=== PATIENT | male | born 1960 | race Caucasian/White ===

== ENCOUNTER 2016-10-08 07:30 | Emergency (ER) | payer BC ==
[2016-10-08 07:35] VITALS: BMI 30.2
[2016-10-08] MEDS ORDERED: ZOFRAN INJ 4 MG VIAL IVP ONE (08:07)
[2016-10-08] MEDS ORDERED: NS 1000 ML 1,000 ML IV ONE (08:07)
[2016-10-08] MEDS ORDERED: NS 1000 ML 1,000 ML ONE ×2 (08:09→12:59)
[2016-10-08] MEDS ORDERED: ZOFRAN INJ 4 MG VIAL ONE (08:09)
[2016-10-08] MEDS ORDERED: THORAZINE INJ 25 MG AMP IM ONE (08:30)
[2016-10-08] MEDS ORDERED: PEPCID 20 MG IV PREMIX* 20 MG/50 ML BAG IV ONE ×2 (08:30→08:36)
[2016-10-08] MEDS ORDERED: THORAZINE INJ 25 MG AMP ONE (08:37)
--- NOTE | 2016-10-08 08:38 | DR.GENAD ---
HPI - PCP Primary Care Physician: blair - HPI Comment HPI Comment: PATIENTS SYMTOMS WORSE TODAY. NO FEVER.DIARRHEA IS LESS FREQUENT TODAY. SEEN LAST NIGHT AT [facility]. FLU TEST NEGATIVE. GIVEN PROTONIX. NOT IMPROVE. - Complaint/Symptoms Chief Complaint Doctors Comments: ABDOMINAL PAIN, N/V/D TIMES 3 DAYS WITH HICCUP. Chief Complaint:: patient stated his abd felt funny friday and then nausea and vomiting with diarrhea and hicupps. - Nurses notes reviewed Nurses Notes Review: Yes - Source History Provided: Patient - Mode of Arrival Mode of Arrival: Ambulatory - Timing Onset of Chief Complaint: 10/05/16 Came on: Suddenly - Duration Duration: Constant Duration: Days - Severity Severity: Moderate PMH - PMH Past Medical History: Yes Past Medical History: Hypertension Past Surgical History: Yes Past Surgical History Comment: hernia - Family History History of Family Medical Conditions: No - Social History Does patient currently use any type of tobacco product: No Have you used tobacco products in the last 12 months: No Type of Tobacco Use: None Does any household member use tobacco: No Alcohol Use: None Do you use any recreational Drugs:: No Lives With: Family Lives Where: Home - infectious screening In the last 2 months have you had wt loss of >10#?: NO Have you had fever, night sweats or hemotysis?: No Have you traveled outside the country in the last 6 months?: No Isolation: Standard ROS - Review of Systems Constitutional: Weakness. negative: Chills, Fever Eyes: No Symptoms Reported. negative: Eye Pain, Discharge ENTM: No Symptoms Reported. negative: Ear Pain, Nose Discharge, Nose Congestion , Throat Pain Respiratoy: No Symptoms Reported. negative: Productive Cough, Short of Breath, Wheezing, Hemoptysis Gastrointestinal/Abdominal: Abdominal Pain, Diarrhea, Nausea, Vomiting Genitourinary: No Symptoms Reported. negative: Dysuria, Frequency, Hematuria Neurological: No Symptoms Reported. negative: Headache, Weakness, Dizziness Musculoskeletal: Muscle Pain Integumentary: Dryness Endocrine: No Symptoms Reported All Other Systems: Reviewed and Negative PE - Vital Signs Vitals: Temperature 97.3 F Pulse Rate [Right Brachial] 111 Pulse Rate 113 Respiratory Rate 17 Blood Pressure [Right Arm] 129/75 Blood Pressure 123/81 O2 Sat by Pulse Oximetry 95 - General Limitations: No Limitations General Appearance: Alert - Head Head Exam: Normal Inspection - Eyes Eye exam: Normal Appearance - ENT ENT Exam: Normal External Ear Exam External Ear Exam: Normal External Inspection TM/Canal Exam: Bilateral Normal Nose Exam: Normal Nose Exam Mouth Exam: Normal Inspection Throat Exam: Normal Inspection - Neck Neck Exam: Trachea Midline. negative: Tenderness, Meningismus, Lymphadenopathy - Chest Chest Inspection: Symmetric Chest Wall Rise - Respiratory Respiratory Exam: Normal Lung Sounds Bilat Respiratory Exam: Bilateral Clear to Auscultation - Cardiovascular Cardiovascular Exam: Regular Rate, Normal Rhythm, Normal Heart Sounds - Abdominal Exam Abdominal Exam: Normal Bowel Sounds, Soft, Tenderness Abdominal Tenderness: Diffuse, Moderate - Extremities Extremities Exam: Normal Inspection - Back Back Exam: Normal Inspection - Neurologic Neurological Exam: Alert, Oriented X3 - Psychiatric Psychiatric Exam: Normal Affect, Normal Mood - Skin Skin Exam: Dry MDM - Additional Information Additional Information Obtained From: Family - Differential Diagnosis Differential Diagnosis: ABDOMINAL PAIN, GASTROENTERITIS, BOWEL OBSTRUCTION, HICCUPS, Course - Treatment Treatment: SEE ORDERS - Reevaluation 1st: Improved (IV FLUIDS, MED FOR NAUSEA AND PAIN) 2nd: Improved (NG TUBE LOW SUCTION. SEE NURSING NOTE.) - Consultation Consultation Comments: DISCUSS PATIENT WITH DR. HWANG. HE WANT PATIENT TRANSFER TO [facility] THERE IS NO SURGEON AT OUR FACILITY. DR. IRIZARRY IN [facility] ACCEPTED PATIENT FOR ED TRANSFER. DR. WITT IN ED ALSO ACCEPTED PATIENT FOR ED TRANSFER. - Education/Counseling Education/Counseling: Patient, Family, Education Educated On: Treatment, Diagnosis ROR - Labs Reviewed Laboratory Results Reviewed?: Yes Result Diagrams: 10/08/16 08:00 10/08/16 08:00 Laboratory: WBC 9.8 X10^3/uL (3.6-10.0) 10/08/16 08:00 RBC 6.13 X10^6/uL (4.7-6.0) H 10/08/16 08:00 Hgb 17.5 g/dL (13.5-18.0) 10/08/16 08:00 Hct 52.1 % (42.0-54.0) 10/08/16 08:00 MCV 84.9 fL (80.0-100.0) 10/08/16 08:00 MCH 28.5 pg (27.0-34.0) 10/08/16 08:00 MCHC 33.5 g/dL (33.0-35.0) 10/08/16 08:00 RDW 15.0 % (11.6-16.5) 10/08/16 08:00 Plt Count 212 X10^3/uL (150.0-450.0) 10/08/16 08:00 MPV 8.7 fL (7.4-11.0) 10/08/16 08:00 Neut % 71.0 % (42.0-75.0) 10/08/16 08:00 Lymph % 9.4 % (21.0-51.0) L 10/08/16 08:00 Reeves % 19.3 % (0.0-13.0) H 10/08/16 08:00 Eos % 0.1 % (0.9-2.9) L 10/08/16 08:00 Baso % 0.2 % (0.2-1.0) 10/08/16 08:00 Neut # 6.9 x10^3/uL (2.2-4.8) H 10/08/16 08:00 Lymph # 0.9 X10^3/uL (1.3-2.9) L 10/08/16 08:00 Reeves # 1.9 x10^3/uL (0.3-0.8) H 10/08/16 08:00 Eos # 0.0 x10^3/uL (0.0-0.2) 10/08/16 08:00 Baso # 0.0 X10^3/uL (0.0-0.1) 10/08/16 08:00 Absolute Nucleated RBC 0.0 /100WBC 10/08/16 08:00 Sodium 142 mmol/L (136-145) 10/08/16 08:00 Corrected Sodium 143 mmol/L (136-145) 10/08/16 08:00 Potassium 3.9 mmol/L (3.5-5.1) 10/08/16 08:00 Chloride 105 mmol/L (98-107) 10/08/16 08:00 Carbon Dioxide 26.2 mmol/L (21-32) 10/08/16 08:00 BUN 28 mg/dL (7-18) H 10/08/16 08:00 Creatinine 1.82 mg/dL (0.70-1.30) H 10/08/16 08:00 Est GFR (MDRD) Af Amer 49 (>60) L 10/08/16 08:00 Est GFR (MDRD) Non-Af 41 (>60) L 10/08/16 08:00 Glucose 121 mg/dL (65-99) H 10/08/16 08:00 Calcium 8.1 mg/dL (8.5-10.1) L 10/08/16 08:00 Corrected Calcium TNP 10/08/16 08:00 Total Bilirubin 0.30 mg/dL (0.2-1.0) 10/08/16 08:00 AST 23 Units/L (15-37) 10/08/16 08:00 ALT 27 Units/L (12-78) 10/08/16 08:00 Alkaline Phosphatase 31 Units/L (46-116) L 10/08/16 08:00 Total Protein 7.0 g/dL (6.4-8.2) 10/08/16 08:00 Albumin 3.5 g/dL (3.4-5.0) 10/08/16 08:00 Globulin 3.5 g/dL (2.5-4.5) 10/08/16 08:00 Albumin/Globulin Ratio 1.0 Ratio (1.1-2.1) L 10/08/16 08:00 Amylase 36 Units/L (25-115) 10/08/16 08:00 Lipase 117 Units/L (73-393) 10/08/16 08:00 H. pylori IgG Antibody Negative (NEGATIVE) 10/08/16 08:00 - XRAY XRAY Interpreted by: Radiologist XRAY Findings: REPORT DISCUSS WITH PATIENT AND HIS . - Diagnosis Discharge Problem: Small bowel obstruction Abdominal pain Qualifiers: Abdominal location: generalized Qualified Code(s): R10.84 - Generalized abdominal pain - Discharge Plan Disposition: XFER [facility]OS[facility] Condition: Stable - Follow ups/Referrals Follow ups/Referrals: Kin Hwang [Primary Care Provider] - 3 days - Instructions
[2016-10-08 08:42] LABS: ALANINE AMINOTRANSFERASE 27 Units/L (12-78); ALBUMIN 3.5 g/dL (3.4-5.0); ALKALINE PHOSPHATASE 31 Units/L (46-116); AMYLASE 36 Units/L (25-115); ASPARTATE AMINO TRANSFERASE 23 Units/L (15-37); BLOOD UREA NITROGEN 28 mg/dL (7-18); CALCIUM 8.1 mg/dL (8.5-10.1); CARBON DIOXIDE 26.2 mmol/L (21-32); CHLORIDE 105 mmol/L (98-107); COR NA(FOR HYPERGLY) 143 mmol/L (136-145); CREATININE 1.82 mg/dL (0.70-1.30); GLUCOSE 121 mg/dL (65-99); LIPASE 117 Units/L (73-393); SODIUM 142 mmol/L (136-145); eGFR BLACK RACES 49 (>60); eGFR NON BLACK RACES 41 (>60)
[2016-10-08 08:49] LABS: BASOPHILS % (AUTO) 0.2 % (0.2-1.0); EOSINOPHILS % (AUTO) 0.1 % (0.9-2.9); HEMATOCRIT 52.1 % (42.0-54.0); HEMOGLOBIN 17.5 g/dL (13.5-18.0); LYMPHOCYTES # (AUTO) 0.9 X10^3/uL (1.3-2.9); LYMPHOCYTES % (AUTO) 9.4 % (21.0-51.0); MEAN CORPUSCULAR HEMOGLOBIN 28.5 pg (27.0-34.0); MEAN CORPUSCULAR HGB CONC 33.5 g/dL (33.0-35.0); MEAN CORPUSCULAR VOLUME 84.9 fL (80.0-100.0); MEAN PLATELET VOLUME 8.7 fL (7.4-11.0); MONOCYTES # (AUTO) 1.9 x10^3/uL (0.3-0.8); MONOCYTES % (AUTO) 19.3 % (0.0-13.0); NEUTROPHILS # (AUTO) 6.9 x10^3/uL (2.2-4.8); PLATELET COUNT 212 X10^3/uL (150.0-450.0); RED BLOOD COUNT 6.13 X10^6/uL (4.7-6.0); WHITE BLOOD COUNT 9.8 X10^3/uL (3.6-10.0)
[2016-10-08] MEDS ORDERED: PHENERGAN INJ 25 MG IV ONE (09:05)
[2016-10-08] MEDS ORDERED: DEMEROL INJ IVP ONE (09:05)
[2016-10-08] MEDS ORDERED: PHENERGAN INJ 25 MG ONE (09:07)
[2016-10-08] MEDS ORDERED: DEMEROL INJ ONE (09:07)
[2016-10-08] MEDS ORDERED: NS 1000 ML 1,000 ML IV SCH (10:00)
--- NOTE | 2016-10-08 10:39 | RAD ---
HISTORY: Abdominal pain Study: Acute abdominal series Comparison: None Findings: The lungs are clear without consolidation, effusion or pneumothorax. The cardiac and mediastinal co ntours are within normal limits. There are dilated small bowel loops measuring up to 5 cm with scattered air-fluid levels seen on upr ight views concerning for small bowel obstruction. No gross free intraperitoneal air. No pathologica l soft tissue mass or calcification can be observed. The bony structures are grossly intact. IMPRESSION: 1. Dilated small bowel loops measuring up to 5 cm with scattered air-fluid levels concerning for sma ll bowel obstruction. Further evaluation with CT of the abdomen and pelvis is recommended. Reported By:
--- NOTE | 2016-10-08 12:13 | RAD ---
HISTORY: NG tube placement Study: KUB Comparison: Earlier same day Findings: Enteric tube is in satisfactory position terminating in the mid stomach. Persistent small bowel obst ructive pattern is seen. IMPRESSION: 1. NG tube in is in satisfactory position. 2. Persistent small bowel obstructive pattern. Reported By:
[2016-10-08] MEDS ORDERED: NS 100 ML IV 0 ML IV ONE (13:56)
--- NOTE | 2016-10-08 14:30 | CT ---
HISTORY: Abdominal pain Study: CT abdomen pelvis without contrast Comparison: Plain films same date Technique: Axial non contrast images with coronal and sagittal reformats. Dose reduction procedures were used with MA/kv adjusted for body size. Findings: The lung bases are clear. The liver, spleen, adrenal glands, and pancreas are within normal limits t o the limitations of an unenhanced examination. No opaque stones are visible within the gallbladder. The kidneys are unobstructed and without stones. No ureteral calculi are identified. There is a 1.3 centimeter nodule projecting laterally off the upper pole of the left kidney which does not meet th e noncontrast CT criteria for a simple cyst. This should be further evaluated with ultrasound. No ur eteral calculi are identified. No significant intraperitoneal or retroperitoneal lymphadenopathy is identified. The appendix is not identified with absolute certainty however there are no secondary si gns of appendicitis present. There are no findings suggestive of diverticulitis or colitis. However, there are multiple dilated air and fluid-filled loops of small bowel involving the jejunum and prox imal and mid ileum. There is transition to a normal-sized distal ileum. This is consistent with a mi d ileal small bowel obstruction. The etiology is not obvious. Adhesions and internal herniations are possibilities as are nonvisualized luminal abnormality. Examination of the pelvis demonstrated no e vidence for pelvic masses, pelvic fluid, or pelvic lymphadenopathy. No bladder abnormality is identi fied. There is nasogastric tube present with its tip within the stomach. IMPRESSION: Findings consistent with a a mid small bowel obstruction the etiology of which is not obvious. Adhes ion, internal herniation, and nonvisualized intraluminal abnormality are possibilities. 1.3 centimeter left renal nodule which does not meet the criteria of a simple cyst. Evaluation of th e left kidney with ultrasound is recommended. Reported By:
[2016-10-08 15:29] VITALS: BP 129/75
== END 2016-10-08 16:30 | disposition short-term general hospital (02) ==
LOC: ER 07:30
PROC: 0D9670Z Drainage of Stomach with Drainage Device, Via Natural or Artificial Opening (ICD-10-PCS; principal; 2016-10-08)
DX: K56.69 Other intestinal obstruction (principal); R10.84 Generalized abdominal pain
CPT/HCPCS: 36415; 74000; 74022; 74176; 80053; 82150; 83690; 85025; 86677; 96365; 96367; 96372; 96374; 96375; 99285; A4222; S0028; J2175; J2405; J2550; J3230

== ENCOUNTER → 2016-11-22 | Outpatient (CLI) | payer BC ==
[~2016-11-22] MED LIST: NS 100 ML IV 100 ML IV ONE
[2016-11-22 09:17] LABS: CREATININE 1.46 mg/dL (0.70-1.30)
--- NOTE | 2016-11-25 08:29 | CT ---
HISTORY: Hematuria Study: CT abdomen pelvis with contrast Comparison: October 08, 2016 Technique: Axial post-contrast images with coronal and sagittal reformats. Dose reduction procedures were used with MA/kv adjusted for body size. Findings: The lung bases are clear. The liver, spleen, adrenal glands, and pancreas appear within normal limit s. No opaque stones are visible within the gallbladder. The kidneys are unobstructed and without sto esme or masses. There is a left renal cyst present accounting for the left renal nodule noted on the prior unenhanced examination. Peripelvic cysts are also present on the left. The no ureteral calculi are identified. The appendix is normal. No intraperitoneal or retroperitoneal lymphadenopathy of si gnificance is identified. There are no findings suggestive of diverticulitis or colitis. Examination of the pelvis demonstrated no evidence for pelvic masses, pelvic fluid, or pelvic lymphadenopathy. The prostate is prominent. No definite bladder abnormality is identified. No lytic or blastic skelet al lesions are identified. IMPRESSION: Multiple left renal cysts as described. New No findings to explain hematuria Reported By:
== END ==
LOC: RAD 08:55
PROVIDERS: ATTEND Internal Medicine
DX: R31.9 Hematuria, unspecified (principal)
CPT/HCPCS: 36415; 74177; 82565; 84520; A4222